=== PATIENT | female | born 1955 | race Caucasian/White ===

== ENCOUNTER → 2017-02-04 | Outpatient (CLI) | payer BC ==
[~2017-02-04] MED LIST: BONTRIL PO; CALCIUM 600600 M2 PO; CELEBREX; CENEST; COLACE 100100 MG/CAP PO; COREG25 MG PO; FOSINOPRIL40 MG PO; HCTZ 25MG25 MG PO; KAPIDEX60 MG PO; LEVOXYL0.1 MG PO; MULTIPLE VITAMI1 CAP PO; PHENDIMETRAZIN105 MG PO; PHILLIPS MILK PO; PRILOSEC 20MG20 MG PO; SUDAFED30 MG PO; VITAMIN D32000 IU PO; VITAMIN D50000 I1 PO; [UNRECOGNIZED DRUG - OTHER] PO
== END ==
LOC: MC.RAD 08:20
DX: Z12.31 Encounter for screening mammogram for malignant neoplasm of breast (principal)

== ENCOUNTER → 2018-02-10 | Outpatient (CLI) | payer BC | LOC: MC.RAD 13:40 | DX: Z12.31 Encounter for screening mammogram for malignant neoplasm of breast (principal) ==

== ENCOUNTER → 2019-04-06 | Outpatient (CLI) | payer BC | LOC: MC.RAD 10:29 | DX: Z12.31 Encounter for screening mammogram for malignant neoplasm of breast (principal); N63.20 Unspecified lump in the left breast, unspecified quadrant ==

== ENCOUNTER → 2019-04-12 | Outpatient (CLI) | payer BC | LOC: MC.RAD 13:51 | DX: N63.20 Unspecified lump in the left breast, unspecified quadrant (principal) ==

== ENCOUNTER → 2019-10-11 | Outpatient (CLI) | payer BC | LOC: MC.RAD 09:56 | DX: Z12.31 Encounter for screening mammogram for malignant neoplasm of breast (principal); N63.22 Unspecified lump in the left breast, upper inner quadrant ==

== ENCOUNTER → 2020-04-07 | Outpatient (CLI) | payer BC | LOC: MC.RAD 14:39 | DX: Z12.31 Encounter for screening mammogram for malignant neoplasm of breast (principal) ==

== ENCOUNTER → 2021-04-08 | Outpatient (CLI) | payer BC | LOC: MC.RAD 07:41 | DX: Z12.31 Encounter for screening mammogram for malignant neoplasm of breast (principal) ==

== ENCOUNTER → 2023-04-19 | Outpatient (CLI) | payer OTHER | LOC: CANSCHCLI → MC.RAD 07:52 | DX: Z12.31 Encounter for screening mammogram for malignant neoplasm of breast (principal) ==